=== PATIENT | female | born 1985 | race Two or more races ===

== ENCOUNTER 2022-02-20 14:59 | Emergency (ER) | payer OTHER ==
[~2022-02-20] VITALS: Ht 165.1 cm; Wt 113.0 kg
[2022-02-20] MEDS ORDERED: KETOROLAC TROMETH 60MG/2ML VIAL IM ONE (20:00)
[2022-02-20] MEDS ORDERED: HYDROcodone-ACET 10/325MG TAB PO ONE (20:00)
[2022-02-20] MEDS ORDERED: IBUP200C14 PO (21:33)
[2022-02-20] MEDS ORDERED: HYDR-4902 PO (21:33)
[2022-02-20 22:35] VITALS: BP 126/76
== END 2022-02-20 22:39 | disposition home or self-care (01) ==
LOC: EDBD 14:59 → ER 15:03
DX: S09.90XA Unspecified injury of head, initial encounter (principal); S19.9XXA Unspecified injury of neck, initial encounter; S49.91XA Unspecified injury of right shoulder and upper arm, initial encounter; V43.62XA Car passenger injured in collision with other type car in traffic accident, initial encounter; Y93.89 Activity, other specified; Y92.410 Unspecified street and highway as the place of occurrence of the external cause; Y99.8 Other external cause status
CPT/HCPCS: 70450; 71250; 72125; 74176; 81025; 93005; 96372; 99285; J1885; L0120

== ENCOUNTER 2023-06-28 15:49 | Inpatient (IN) | payer MEDICAID, OTHER ==
[~2023-06-28] VITALS: Ht 170.2 cm; Wt 123.6 kg
[~2023-06-28 15:49] MED LIST: IBUP200C14 PO
[2023-06-28 17:35] LABS: Basophils # (auto) 0.1 10 ^3/uL (0-0.2); Eosinophils # (auto) 0.1 10 ^3/uL (0-0.8); Hemoglobin 9.2 g/dL (12.2-16.2); Mean Corpuscular Hemoglobin 23.5 pg (28.0-32.0); Mean Corpuscular Hgb Conc. 31.3 g/dL (32.0-36.0); Mean Corpuscular Volume 75.1 fL (80.0-100.0); Monocytes # (auto) 0.5 10 ^3/uL (0-1.3); Neutrophils # (auto) 10.3 10 ^3/uL (1.6-8.6)
[2023-06-28 17:37] LABS: Basophils % (auto) 0.7 % (0.0-2.0); Hematocrit 29.5 % (36.0-46.0); Lymphocytes # (auto) 2.2 10 ^3/uL (0.4-5.4); Lymphocytes % (auto) 16.8 % (10.0-50.0); Monocytes % (auto) 3.5 % (0.0-12.0); Red Blood Cells 3.93 10^6/uL (4.0-5.20); Red Cell Distribution Width 16.8 % (11.8-14.3); White Blood Cell 13.2 10^3/uL (4.4-10.8)
[2023-06-28 17:45] LABS: Chloride 106 mmol/L (98-107); Sodium 139 mmol/L (136-145)
[2023-06-28 17:46] LABS: Anion Gap 7 (5-15); Calcium 8.3 mg/dL (8.7-10.4); Carbon Dioxide 26 mmol/L (20-30)
[2023-06-28 17:51] LABS: Blood Urea Nitrogen 15 mg/dL (9-23); Glucose 235 mg/dL (74-106)
[2023-06-28 21:41] LABS: Hematocrit 26.1 % (36.0-46.0); Hemoglobin 8.2 g/dL (12.2-16.2)
[2023-06-28] MEDS ORDERED: ONDANSETRON HCL 4 MG/2 ML VIAL IV PRN (23:00)
[2023-06-28] MEDS ORDERED: TEMAZEPAM 15 MG CAP PO PRN (23:00)
[2023-06-29 00:55] LABS: Hematocrit 26.4 % (36.0-46.0); Hemoglobin 8.5 g/dL (12.2-16.2)
[2023-06-29 02:21] LABS: Urine Bacteria NONE SEEN /hpf (None Seen); Urine Blood 3+ /uL (Negative); Urine Clarity CLOUDY (Clear); Urine Color Red (Yellow); Urine Protein, UAD 2+ (Negative); Urine Specific Gravity 1.023 (1.001-1.035); Urine Urobilinogen Normal (Negative); Urine WBC 188 /hpf (0 - 5); Urine WBC Clumps PRESENT /hpf (None Seen); Urine pH 5.5 (5.0-8.0)
[2023-06-29 06:45] VITALS: PULSE 86; RESP 18; O2SAT 98
[2023-06-29 07:45] VITALS: PULSE 86; RESP 15; O2SAT 100
[2023-06-29] MEDS: cefTRIAXone 1GM/50ML D5W 50 ML IV SCH (09:26)
[2023-06-29 12:45] LABS: Hematocrit 26.4 % (36.0-46.0); Hemoglobin 8.3 g/dL (12.2-16.2)
[2023-06-29 13:04] LABS: % Iron Saturation 8.2 % (15-50)
[2023-06-29 13:09] LABS: Ferritin 9.4 ng/mL (10-291); Folate (Folic Acid) 15.87 ng/mL (>5.38)
[2023-06-29 13:45] LABS: Erythrocyte Sedimentation Rate 48 mm/hr (0-20)
[2023-06-29] MEDS: MEGESTROL ACETATE 20 MG TAB PO SCH (15:07)
[2023-06-29 16:24] VITALS: PULSE 100; RESP 20; O2SAT 95
[2023-06-29 16:25] VITALS: BP 127/80; PULSE 100; RESP 20; TEMP 98.7; O2SAT 95
[2023-06-29 17:57] LABS: Hematocrit 24.2 % (36.0-46.0); Hemoglobin 7.7 g/dL (12.2-16.2)
[2023-06-29 20:00] VITALS: PULSE 102; RESP 18; O2SAT 97
[2023-06-29 22:00] VITALS: BP 116/64; PULSE 102; RESP 18; TEMP 97.5; O2SAT 97
[2023-06-30] VITALS (13 sets, daily range): BP systolic 100–127; BP diastolic 60–70; PULSE 20–98; RESP 18–90; TEMP 98–98.8; O2SAT 95–99
[2023-06-30 01:15] LABS: Hematocrit 21.4 % (36.0-46.0)
[2023-06-30 01:19] LABS: Hemoglobin 6.8 g/dL (12.2-16.2)
[2023-06-30 06:09] LABS: Hematocrit 21.5 % (36.0-46.0)
[2023-06-30 06:20] LABS: Hemoglobin 6.8 g/dL (12.2-16.2)
[2023-06-30] MEDS: metFORMIN HYDROCHLORIDE 500 MG TAB PO SCH (07:51)
[2023-06-30] MEDS ORDERED: DOCUSATE SOD 100 MG CAP PO PRN (08:00)
[2023-06-30 08:06] LABS: Sex Hormone Binding Globulin 15.3 nmol/L (24.6-122.0)
[2023-06-30] MEDS: FERROUS SULFATE 325mg EC TAB PO SCH (09:38)
[2023-06-30 22:15] LABS: Hematocrit 28.4 % (36.0-46.0)
[2023-07-01] MEDS ORDERED: FER325T PO (03:42)
[2023-07-01] MEDS ORDERED: METF-370 PO (03:42)
[2023-07-01] MEDS ORDERED: MEGE20TA3 PO (03:42)
[2023-07-01 05:00] VITALS: BP 114/55; PULSE 80; RESP 20; TEMP 98.2; O2SAT 95
[2023-07-01 06:22] LABS: Basophils # (auto) 0.1 10 ^3/uL (0-0.2); Eosinophils # (auto) 0.3 10 ^3/uL (0-0.8); Lymphocytes # (auto) 3.7 10 ^3/uL (0.4-5.4); Mean Corpuscular Volume 76.8 fL (80.0-100.0); Monocytes % (auto) 5.7 % (0.0-12.0)
[2023-07-01 06:24] LABS: Basophils % (auto) 0.6 % (0.0-2.0); Eosinophils % (auto) 3.3 % (0.0-7.0); Hematocrit 27.9 % (36.0-46.0); Hemoglobin 9.5 g/dL (12.2-16.2); Mean Corpuscular Hemoglobin 26.1 pg (28.0-32.0); Monocytes # (auto) 0.6 10 ^3/uL (0-1.3); Neutrophils # (auto) 5.1 10 ^3/uL (1.6-8.6); Neutrophils % (auto) 52.4 % (37.0-80.0); Red Blood Cells 3.63 10^6/uL (4.0-5.20); Red Cell Distribution Width 17.4 % (11.8-14.3); White Blood Cell 9.7 10^3/uL (4.4-10.8)
[2023-07-01 06:37] LABS: Triglycerides 105 mg/dL (< 150)
[2023-07-01 06:38] LABS: LDL Cholesterol 133 mg/dL (< 100)
[2023-07-01 06:39] LABS: Cholesterol 175 mg/dL (< 200); HDL Cholesterol 34 mg/dL (40-59)
[2023-07-01 07:35] LABS: Urine Bacteria NONE SEEN /hpf (None Seen); Urine Blood 3+ /uL (Negative); Urine Clarity Clear (Clear); Urine Color Yellow (Yellow); Urine Protein, UAD Negative (Negative); Urine Specific Gravity 1.015 (1.001-1.035); Urine Urobilinogen Normal (Negative); Urine WBC 19 /hpf (0 - 5)
[2023-07-01 07:47] LABS: Protein, Urine 14.8 mg/dL (0.0-11.9)
[2023-07-01 07:48] LABS: Creatinine, Urine 85.46 mg/dL (30.0-125.0); Urine Protein/Creatinine Ratio 0.17
[2023-07-01 07:57] VITALS: BP 114/55; PULSE 80; RESP 20; TEMP 98.2; O2SAT 95
[2023-07-01 08:00] VITALS: BP 108/64; PULSE 80; PULSE 98; RESP 20; TEMP 98.4; O2SAT 98
[2023-07-01 09:00] VITALS: BP 115/67; PULSE 80; RESP 20; TEMP 98.4; O2SAT 98
[2023-07-01 12:09] VITALS: BP 115/67; PULSE 80; RESP 16; TEMP 36.9; O2SAT 98
[2023-07-01 13:00] VITALS: BP 121/72; PULSE 76; RESP 16; TEMP 98.1; O2SAT 98
[2023-07-07 15:06] LABS: Free Testosterone(Direct) 1.4 pg/mL (0.0-4.2)
== END 2023-07-01 15:53 | disposition home or self-care (01) | DRG 532 ==
LOC: EDUNIT# 15:49 → ER 15:49 → EDBD 15:49 → OVERFLOW 23:03 → WEST WING 06-29 16:00
PROVIDERS: ADMIT Nurse Practitioner; ATTEND Internal Medicine
PROC: 30233N1 Transfusion of Nonautologous Red Blood Cells into Peripheral Vein, Percutaneous Approach (ICD-10-PCS; principal; 2023-06-30)
DX: D25.1 Intramural leiomyoma of uterus (principal); D62 Acute posthemorrhagic anemia; E66.9 Obesity, unspecified; N39.0 Urinary tract infection, site not specified; E11.65 Type 2 diabetes mellitus with hyperglycemia; N97.0 Female infertility associated with anovulation; N92.0 Excessive and frequent menstruation with regular cycle; Z68.41 Body mass index [BMI] 40.0-44.9, adult
CPT/HCPCS: 36415; 76856; 80048; 80061; 81001; 82043; 82570; 82607; 82728; 82746; 82962; 83010; 83036; 83540; 83550; 83615; 84146; 84156; 84270; 84402; 84403; 84436; 84443; 84702; 85014; 85018; 85025; 85045; 85652; 86850; 86900; 86901; 86920; 87086; 96365; G0378

== ENCOUNTER 2024-12-20 07:36 | Emergency (ER) | payer MEDICAID, OTHER ==
[~2024-12-20] VITALS: Ht 170.2 cm; Wt 112.0 kg
[~2024-12-20 07:36] MED LIST changes: +FER325T PO; +MEGE20TA3 PO; +METF-370 PO
[2024-12-20 07:37] VITALS: BP 126/78; PULSE 90; RESP 20; TEMP 98.7; O2SAT 98
--- NOTE | 2024-12-20 08:58 | ED.PDOC ---
History of Present Illness HPI Comments A 39-YEAR-OLD FEMALE WITH A HISTORY OF PNEUMONIA, AND CHRONIC BACK PAIN PRESENTS TO THE ED WITH A C/C OF INTERMITTENT LOWER BACK PAIN WITH THE ASSOCIATED RADIATION DOWN BILATERAL LEGS. PATIENT STATES THAT HER SYMPTOMS HAS BEEN ON SO FOR THE PAST 4 DAYS AND NOTES ON TAKING IBUPROFEN, AND TYLENOL WITH NO MACEY VIATING FACTORS, BUT HE WORSENING FACTOR UPON MOVEMENT/WALKING. PATIENT DENIES ANY RECENT INJURY, TRAUMA, PHYSICAL ACTIVITY, HEAVY LIFTING, OR ANY OTHER ASSOCIATED SYMPTOMS, MODIFIERS AT THIS TIME Chief Complaint: Back Pain Time Seen by MD: 08:55 Primary Care Provider: NONE Reviewed Notes: Nurses Notes, Medications, Allergies Allergies: Coded Allergies: NO KNOWN ALLERGIES (Unverified , 02/20/22) Home Meds Active Scripts Methocarbamol (Methocarbamol) 750 Mg Tab, 750 MG PO BID, #20 TAB Prov:MAYUR RICO 12/20/24 Ibuprofen (Ibuprofen) 800 Mg Tab, 1 TAB PO TID, #30 TAB Prov:MAYUR RICO 12/20/24 Metformin Hydrochloride (Metformin Hcl) 500 Mg Tab, 500 MG PO BIDWM, #90 TAB Prov:STAN AZEVEDO DO 24 Megestrol Acetate (Megace) 20 Mg Tb, 40 MG PO BID for 7 Days, #28 TAB Prov:STAN AZEVEDO DO 24 Ferrous Sulfate (Ferrous Sulfate) 325 Mg Tab, 325 MG PO TIDWM, #90 TAB Prov:ASAIBASTAN ARGUELLO DO 24 Ibuprofen (Advil) 200 Mg Cap, 800 MG PO TIDBM, #30 CAP Prov:RIC RAHMAN MD 02/20/22 Information Source: Patient Mode of Arrival: Wheelchair Severity: Moderate Timing: Days Duration: Intermittent, Days Prehospital treatment: None Medication Refill: For: Other (CHRONIC LOWER BACK PAIN AND PAIN MANAGEMENT ) Past Medical History Past Medical History (Other): CHRONIC LOW BACK PAIN Surgical History: Denies all surgeries PRODUCT DESIGN MANAGER History: Denies all PRODUCT DESIGN MANAGER Hx Family History Family History: Reviewed,noncontributory to illness Social History Smoker: Non-Smoker Alcohol: Denies ETOH Use Drugs: Denies Drug Use Lives In: Home Constitutional: denies: chills, diaphoresis, fatigue, fever, malaise, sweats, weakness, others EENTM: denies: blurred vision, double vision, ear bleeding, ear discharge, ear drainage, ear pain, ear ringing, eye pain, eye redness, hearing loss, mouth pain, mouth swelling, nasal discharge, nose bleeding, nose congestion, nose pain, photophobia, tearing, throat pain, throat swelling, voice changes, others Respiratory: denies: cough, hemoptysis, orthopnea, SOB at rest, shortness of breath, SOB with excertion, stridor, wheezing, others Cardiovascular: denies: chest pain, dizzy spells, diaphoresis, Dyspnea on exertion, edema, irregular heart beat, left arm pain, lightheadedness, palpi tations, PND, syncope, others Gastrointestinal: denies: abdomen distended, abdominal pain, blood streaked bowels, constipated, diarrhea, dysphagia, difficulty swallowing, hematemesis, melena, nausea, poor appetite, poor fluid intake, rectal bleeding, rectal pain, vomiting, others Genitourinary: denies: abnormal vagina bleeding, burning, dyspareunia, dysuria, flank pain, frequency, hematuria, incontinence, pain, , vagina discharge, urgency, others Neurological: denies: dizziness, fainting, headache, left sided numbness, left sided weakness, numbness, paresthesia, pre-existing deficit, right sided numbness, right sided weakness, seizure, speech problems, tingling, tremors, weakness, others Musculoskeletal: reports: back pain, muscle pain; denies: gout, joint pain, joint swelling, muscle stiffness, neck pain, others Integumetry: denies: bruises, change in color, change in hair/nails, dryness, laceration, lesions, lumps, rash, wounds, others Allergic/Immunocompromised: denies: Difficulty Healing, Frequent Infections, Hives, Itching, others Hematologic/Lymphatic: denies: anemia, blood clots, easy bleeding, easy bruising, swollen glands, others Endocrine: denies: excessive hunger, excessive sweating, excessive thirst, excessive urination, flushing, intolerance to cold, intolerance to heat, unexp lained weight gain, unexplained weight loss, others Psychiatric: denies: anxiety, bipolar disorder, depression, hopeless, panic disorder, schizophrenia, sleepless, suicidal, others All Other Systems: Reviewed and Negative Physical Exam General Appearance: No Apparent Distress, Obese HEENT: Normal ENT Inspection, PERRL/EOMI, Pharynx Normal, TMs Normal Neck: Full Range of Motion, Non-Tender, Normal, Normal Inspection Respiratory: Chest Non-Tender, Lungs Clear, No Accessory Muscle Use, No Respi ratory Distress, Normal Breath Sounds Cardiovascular: No Edema, No JVD, No Murmur, No Gallop, Normal Peripheral Pulses, Regular Rate/Rhythm Breast Exam: Deferred Gastrointestinal: No Organomegaly, Non Tender, No Pulsatile Mass, Normal Bowel Sounds, Soft Genitalia: Deferred Pelvic: Deferred Rectal: Deferred Extremities: No calf tenderness, Normal capillary refill, Normal inspection, Normal range of motion, Non-tender, No pedal edema Musculoskeletal : Location: Bilateral Extremity Location: Back Apperance: Tenderness: Moderate (TENDERNESS AND MUSCLE SPASM ON LOWER BACK, NO BONY TENDERNESS, SWELLING AND DEFORMITY. ) Neurologic: Alert, project engineering manager II-XII nml as Tested, No Motor Deficits, Normal Affect, Normal Mood, No Sensory Deficits Cerebellar Function: Normal Reflexes: Normal Skin: Dry, Normal Color, Warm Peripheral Pulses: 2+ carotid (R), 2+ carotid (L), 2+ dorsalis pedis (R), 2+ dorsalis pedis (L) Lymphatic: No Adenopathy Was a procedure done? Was a procedure done?: No Differential Dx Considerations may include: CHRONIC BACK PAIN EXACERBATION, PAIN MANAGEMENT X-Ray, Labs, Meds, VS Vital Signs Date Time Temp Pulse Resp B/P (MAP) Pulse Ox O2 Delivery O2 Flow Rate FiO2 12/20/24 07:37 98.7 90 20 126/78 98 98.7 Current Medications Medications (Trade) Dose Ordered Sig/Juanita Route Start Time Stop Time Status Last Admin Ketorolac Tromethamine (Toradol Injection) 60 mg ONCE ONCE IM 12/20/24 09:00 12/20/24 09:01 DC 12/20/24 09:36 Acetaminophen/ Hydrocodone Bitart ([place] 10/325MG Tab) 1 tab ONCE ONCE PO 12/20/24 09:00 12/20/24 09:01 DC 12/20/24 09:05 X-Ray, Labs, Meds, VS Comment EXTERNAL MEDICAL RECORDS REVIEWED: [NONE] INDEPENDENT HISTORIANS: [NONE] SOCIAL DETERMINANTS OF HEALTH: [NONE] LABS ORDERED: NONE REVIEWED AND INTERPRETED RESULTS: NONE IMAGING ORDERED: NONE TREATMENTS ORDERED: 1 NORCO, TORADOL 60 MG IM PROCEDURES PERFORMED: NONE CRITICAL CARE TIME: NONE I HAVE DISCUSSED THE PATIENT WITH THE ATTENDING PHYSICIAN [GIRMA] AND HE AGREES WITH THE PATIENT'S PLAN OF CARE AND DISPOSITION. BASED ON HISTORY OF PRESENT ILLNESS, AND PHYSICAL EXAM, PATIENT WILL BE DISCHARGED HOME. DISCUSSED PLAN FOR DISCHARGE HOME WITH RX [MOTRIN AND ROBAXIN]. MEDICATION WARNINGS GIVEN. SHARED DECISION MAKING: DISCUSSED WITH PATIENT THAT THEIR WORKUP WAS NORMAL. PATIENT INSTRUCTED TO FOLLOW UP WITH PRIMARY CARE PROVIDER IN 1-2 DAYS FOR RE-EVALUATION OF SYMPTOMS. PATIENT VERBALIZES UNDERSTANDING TO RETURN TO ED FOR NEW OR WORSENING SYMPTOMS OR IF FOLLOW UP WITH PCP CANNOT BE OBTAINED. PATIENT FEELS COMFORTABLE GOING HOME AT THIS TIME. ALL QUESTIONS ADDRESSED AT TIME OF DISCHARGE. BASED ON THE PATIENT'S PERSISTENCE OF SYMPTOMS, THE PATIENT SOUGHT OUT ED CONSULT. BASED ON MY PHYSICAL EXAMINATION AND PATIENT'S HISTORY OF CHRONIC BACK PAIN, THERE IS NO NEW INJURY TO THE PATIENT'S BACK. THE PATIENT DENIES ANY NUMBNESS, WEAKNESS, TINGLING SENSATION, URINARY/BOWEL INCONTINENCE. THERE ARE NO SIGNS AND SYMPTOMS OF CAUDA EQUINA. THE PATIENT STATES THAT THE PAIN IS THE SAME WHEN THEY HAVE BACK PAIN FLARE-UP AND THAT THEY ONLY NEED PAIN MEDICATION IN THE ER. AT THIS POINT, THERE IS NO INDICATION FOR ANY IMAGING. THE PATIENT WAS ADVISED TO FOLLOW UP WITH ORTHO SPECIALIST FOR THEIR CHRONIC LOWER BACK PAIN AND PAIN MANAGEMENT DOCTOR FOR PAIN CONTROL. PATIENT WAS GIVEN ... FOR PAIN MEDICATION. OVERALL PATIENT'S VITAL SIGNS ARE STABLE AND THE PATIENT WILL BE DISCHARGED HOME. Time of 1ST Reevaluation: 09:50 Reevaluation 1ST: Improved Patient Education/Counseling: Diagnosis, Treatment, Need For Follow Up Family Education/Counseling: Diagnosis, Treatment, Need For Follow Up Medical Screening: No EMC Exist At This Time SEPSIS Sepsis Screen Date sepsis recognized/suspect: Dec 20, 2024 Time Sepsis recognized/suspect: 0738 Recent Procedure: No On Antibiotic Therapy: No Respiratory Rate >20: No Heart Rate >90: No Temp<36 C (96.8 F) or >38.3 C: No SBP <90 or MAP <65 mmHG: No New Acute Mental Status Change: No Is the patient on CPAP, BIPAP,: No Vital Signs Date Time Temp Pulse Resp B/P (MAP) Pulse Ox O2 Delivery O2 Flow Rate FiO2 12/20/24 07:37 98.7 90 20 126/78 98 98.7 Medications Medications Dose Ordered Sig/Juanita Route Start Time Stop Time Status Last Admin Dose Admin Acetaminophen/ Hydrocodone Bitart 1 tab ONCE ONCE PO 12/20/24 09:00 12/20/24 09:01 DC 12/20/24 09:05 Ketorolac Tromethamine 60 mg ONCE ONCE IM 12/20/24 09:00 12/20/24 09:01 DC 12/20/24 09:36 Departure 1 Departure Time of Disposition: 09:51 Impression: Primary Impression: Acute exacerbation of chronic low back pain Additional Impression: Pain management Disposition: HOME / SELF CARE / HOMELESS Condition: Stable Additional Instructions: FOLLOW-UP WITH PCP IN 1 TO 2 DAYS. TAKE MEDICATIONS PRESCRIBED. RETURN TO ED FOR ANY NEW OR WORSENING SYMPTOMS. e-Prescriptions Methocarbamol (Methocarbamol) 750 Mg Tab 750 MG PO BID, #20 TAB Prov: MAYUR RICO 12/20/24 Ibuprofen (Ibuprofen) 800 Mg Tab 1 TAB PO TID, #30 TAB Prov: MAYUR RICO 12/20/24 Discharged With: Self, Relative Critical Care Note Critical Care Time?: No Stability Stability form required: No Heart Score Heart Score: Heart Score Response (Comments) Value History N/A 0 EKG N/A 0 Age N/A 0 Risk Factors N/A 0 Troponin N/A 0 Total 0 I personally scribed for MAYUR RICO ([email or web address]) on 12/20/24 at 08:58. Electronically submitted by Last Franz ([email or web address]). I personally scribed for MAYUR RICO ([email or web address]) on 12/20/24 at 09:35. Electronically submitted by Last Franz ([email or web address]). MAYUR RICO Dec 20, 2024 08:58
[2024-12-20] MEDS: HYDROcodone-ACET 10/325MG TAB PO ONE (09:05)
[2024-12-20] MEDS: KETOROLAC TROMETH 60MG/2ML VIAL IM ONE (09:36)
[2024-12-20] MEDS ORDERED: IBUP-1456 PO (09:48)
[2024-12-20] MEDS ORDERED: METH-1182 PO (09:48)
== END 2024-12-20 10:10 | disposition home or self-care (01) ==
LOC: ER 07:36
DX: G89.29 Other chronic pain (principal); Z87.01 Personal history of pneumonia (recurrent); Z79.1 Long term (current) use of non-steroidal anti-inflammatories (NSAID); Z79.899 Other long term (current) drug therapy
CPT/HCPCS: 96372; 99283; J1885